=== PATIENT | female | born 2005 | race Two or more races ===

== ENCOUNTER 2025-05-28 14:50 | Outpatient (AMB) | payer MEDICAID, SELFPAY ==
[2025-05-28 15:21] VITALS: BP 125/80; PULSE 70; RESP 14; TEMP 36.3; O2SAT 99; BMI 30.2
--- NOTE | 2025-05-28 15:21 | OBCLNT_ITS ---
Vital Signs 05/28/25 15:21 Height 1.52 m Height Method Stated Weight 70.364 kg Weight Measurement Method Standing Scale BMI 30.2 BP 125/80 Blood Pressure Source Automatic Cuff Blood Pressure Location Left Upper Arm Position Sitting Respiration 14 Pulse 70 Pulse Source Monitor Temp 97.4 F Temp Source Oral Pulse Oximetry (%) 99 Oxygen Delivery Method Room Air Allergies/Home Meds Allergies & Medications Allergies No Known Allergies Allergy (Unknown, Uncoded 05/28/25 15:22) Medication Reconciliation NONE ##0 12/04/08 [History Confirmed 05/28/25] Intake Visit Data Collection New Patient or Established: New Patient (never been to [facility]) Reason for Visit:: INITIAL CARE Seen by Clinical Staff ONLY (RN/MA): No Crystallizer Operator Required: No Do You Feel Safe at Home: Yes Authorities Contacted: N/A PCP or OBGYN visit in last 3 months: No Hx Now: Yes Are you currently on any form of Control: No Last menstrual period: 10/13/24 Pain Present Currently: No Pain Scale Used: Courtney-Isaac/Numerical Pain scale:: 0 Smoking Status Smoking Status: Never smoker Questionnaires Covid-19 Vaccine Questionnaire Has patient been vacinated for Covid-19 Have you been vacinated for Covid-19: Yes PHQ-9 PHQ-2 Over the last 2 weeks, how often have you been bothered by any of the following problems? 1. Little interest or pleasure in doing things: not at all 2. Feeling down, depressed, or hopeless: not at all Total score: 0 PHQ-9 3. Trouble falling or staying asleep, or sleeping too much: Not at all 4. Feeling tired or having little energy: Not at all 5. Poor appetite or overeating: Not at all 6. Feeling bad about yourself - or that you are a failure or have let yourself or your family down: Not at all 7. Trouble concentrating on things, such as reading the newspaper or watching television: Not at all 8. Moving or speaking so slowly that other people could have noticed? - Or the opposite - being so fidgety or restless that you have been moving around a lot more than usual: not at all 9. Thoughts that you would be better off or of hurting yourself in some way: Not at all Total score: 0 Source: Developed by Drs. Enoc Warner, Acacia Zhao, Sp Terrell and colleagues, with an educational louann from [employer]. Depression screen completed yes Social History Living Situation History Lives With: Children Housing: House Tobacco History Smoking Status: Never smoker Second Hand Smoke Exposure: No Alcohol History Alcohol Intake: Never Domestic Abuse History Do You Feel Safe at Home: Yes History of Present Illness HPI Narrative 19-year-old 1 para 0 here for OBI. Patient is been followed at [facility] for care. Her first visit with Dr. Patel was at 8 weeks. Last. October 12, 2024. Estimated due date July 20, 2022 5. Patient had a 13-week ultrasound in December that confirmed dates. And she just had an ultrasound in April that also complained dates and growth. Denies social habits. Denies surgery. Denies chronic illness. Patient has a history of marijuana use early with . She is not smoking anymore. O+, antibody screen negative, RPR nonreactive, rubella immune, hepatitis B negative, hep C negative, HIV negative, GC and Chlamydia were negative. Her rubella was nonimmune. She AFP, NIPT and carrier screens were all negative. She had normal 1 hour. Her iron was 10.5 and 33. Normal platelets . A1C was 5.2 OB Initial Visit OB Flowsheet OB Flowsheet Initial Weight: Not Recorded Date -?-?-?-?-?-?-?-?-?-?-?-?- EGA Weight BP Alb Glu CTX Pres Fundal ht FHR Mov Dilation Station Effacement Hx Notes Visit Note 05/28/25 -?-?-?-?-?-?-?-?-?-?-?-?- 32w 4d 70.364 kg 125/80 absent unknown 31 145 active 19-year-old 1 para 0 with transfer care from [facility]. Records present. Patient has no OB complaints. Reports movement. Denies leaking, denies bleeding, denies contractions. Reviewed labs an d dates with patient. Continue vitamins. Increase fluids. Discussed kick count with patient. And I discussed ER precautions precautions parameters. Return 2 weeks OB Menstrual History Menstrual reliability: definite Flow: heavy Menstrual regularity: regular Monthly: Yes Age at menarche: 12 On control pills at conception: No Associated symptoms (LMP): Reports fatigue and breast tenderness OB History : 1 Infection History & Risk Evaluation History of STDs: none Genetic Screening & History Genetic Screening/Teratology Counseling - Includes patient, baby's father, or anyone in either family with: 1. Patient's age 35 years or older as of estimated date of delivery: No 2. Thalassemia (Guamanian, Sammarinese, Mediterranean, or Background); MCV less t [place] 80: No 3. Neural Tube Defect (Meningomyelocele, Spina Bifida, or Anencephaly): No 4. Congenital Heart Defect: No 5. Down Syndrome: No 6. Varun-Sachs (Ashkenazi Scientologist, Cajun, Tajik [place]): No 7. Olive Disease (Ashkenazi Scientologist): No 8. Familial Dysautonomia (Ashkenazi Scientologist): No 9. Sickle Cell Disease or Trait (): No 10. Hemophilia or other blood disorders: No 11. Muscular Dystrophy: No 12. Cystic Fibrosis: No 13. Wharton's Chorea: No 14. Mental Retardation/Autism: No 15. Other inherited genetic or chromosomal disorder: No 16. Maternal Metabolic Disorder (EG,TYPE 1 Diabetes, PKU): No 17. Patient or baby's father had a child with defects not listed above: No 18. Recurrent loss or a stillbirth: No 19. Medications (including supplements, vitamins, herbs or otc drugs)/illicit/recreational drugs/alcohol since last menstrual period: No 20. Any other: No Infection History 1. Live with someone with TB or exposed to TB: No 2. Rash or viral illness since last menstrual period: No 3. Hepatitis B,C: No Other (see comments) Source: [employer] [place] Review of Systems Review of Systems Systems Reviewed: All systems reviewed, normal except as documented Constitutional Constitutional: Reports fatigue Endocrine Endocrine: Reports fatigue Exam General Limitations: no limitations General Appearance: alert, in no apparent distress, comfortable, cooperative, healthy appearing, well developed and well groomed Neck Neck exam: Present normal inspection, full ROM and trachea midline Chest Chest inspection: Present normal inspection and symmetric chest wall rise Resp Respiratory exam: Present normal lung sounds bilaterally Card Cardiovascular exam: Present regular rate, normal rhythm and normal heart sounds Psych Psychiatric exam: Present normal affect and normal mood Office Procedures OB Clinic LOC & Office Proc's Nursing/Assessment Patient Status: Initial/New Patient OB Clinic Nursing Assessment: Medication Reconciliation, Update PMH in EMR and Vital Signs OB Clinic Coordination of Care: Complex Care and Chronic Disease 1-5, Consent,records obtained, informed consent, Education Simp Pt/Fam, 1 Ins Authorization, Lab and Imaging orders, Results/Orders obtained and Staff clarify orders Special Needs: Heart tones New Patient Charge New Patient Point Assignment: [id number] New Patient Point Charge: VAN HELPER Level 4 ([id number]) Assessment & Plan Diagnosis / Problem List (1) Encounter for supervision of high risk in third trimester, antepartum: Status: Acute Plan Discussed kick count twice a day. Increase fluids. I talked with patient about diet and weight gain I also encouraged patient to start walking at least 2 0 minutes twice a day. Reviewed reviewed labs and dates with patient and discussed labor precautions and danger signs symptoms. Return in 2 weeks OB check Additional Plan Follow Up: 2 Weeks (OBC)
== END 2025-05-28 15:38 | disposition home or self-care (01) ==
LOC: HODSOBC 14:50
PROVIDERS: Supervising Provider Advanced Practice Midwife; Visit Provider Advanced Practice Midwife
DX: O09.93 Supervision of high risk pregnancy, unspecified, third trimester (principal); Z3A.32 32 weeks gestation of pregnancy
CPT/HCPCS: 99204; G0463

== ENCOUNTER 2025-06-11 13:43 | Outpatient (AMB) | payer MEDICAID, SELFPAY ==
[2025-06-11 14:04] VITALS: BP 141/89; PULSE 77; RESP 16; TEMP 36.4; O2SAT 99; BMI 31.7
--- NOTE | 2025-06-11 14:04 | OBCLNT_ITS ---
Vital Signs 06/11/25 14:04 Height 1.52 m Height Method Stated Weight 73.255 kg Weight Measurement Method Standing Scale BMI 31.7 BP 141/89 H Blood Pressure Source Automatic Cuff Blood Pressure Location Left Upper Arm Position Sitting Respiration 16 Pulse 77 Pulse Source Monitor Temp 97.6 F Temp Source Oral Pulse Oximetry (%) 99 Oxygen Delivery Method Room Air Allergies/Home Meds Allergies & Medications Allergies No Known Allergies Allergy (Unknown, Uncoded 06/11/25 14:05) Medication Reconciliation NONE ##0 12/04/08 [History Confirmed 06/11/25] Intake Visit Data Collection New Patient or Established: Established Patient (seen at [facility] within 3 years) Reason for Visit:: CARE Seen by Clinical Staff ONLY (RN/MA): No Supervisor Record Press Required: No Do You Feel Safe at Home: Yes Authorities Contacted: N/A PCP or OBGYN visit in last 3 months: Yes Hx Now: Yes Are you currently on any form of Control: No Pain Present Currently: No Pain Scale Used: Courtney-Isaac/Numerical Pain scale:: 0 Smoking Status Smoking Status: Never smoker Questionnaires Covid-19 Vaccine Questionnaire Has patient been vacinated for Covid-19 Have you been vacinated for Covid-19: Yes PHQ-9 PHQ-2 Over the last 2 weeks, how often have you been bothered by any of the following problems? 1. Little interest or pleasure in doing things: not at all 2. Feeling down, depressed, or hopeless: not at all Total score: 0 PHQ-9 3. Trouble falling or staying asleep, or sleeping too much: Not at all 4. Feeling tired or having little energy: Not at all 5. Poor appetite or overeating: Not at all 6. Feeling bad about yourself - or that you are a failure or have let yourself or your family down: Not at all 7. Trouble concentrating on things, such as reading the newspaper or watching television: Not at all 8. Moving or speaking so slowly that other people could have noticed? - Or the opposite - being so fidgety or restless that you have been moving around a lot more than usual: not at all 9. Thoughts that you would be better off or of hurting yourself in some way: Not at all Total score: 0 Source: Developed by Drs. Enoc Warner, Acacia Zhao, Sp Terrell and colleagues, with an educational louann from [employer]. Depression screen completed yes Social History Living Situation History Lives With: Children Housing: House Tobacco History Smoking Status: Never smoker Second Hand Smoke Exposure: No Alcohol History Alcohol Intake: Never Domestic Abuse History Do You Feel Safe at Home: Yes Care OB Visit Log OB Flowsheet Initial Weight: Not Recorded Date -?-?-?-?-?-?-?-?-?-?-?-?- EGA Weight BP Alb Glu CTX Pres Fundal ht FHR Mov Dilation Station Effacement Hx Notes Visit Note 05/28/25 -?-?-?-?-?-?-?-?-?-?-?-?- 32w 4d 70.364 kg 125/80 absent unknown 31 145 active 19-year-old 1 para 0 with transfer care from [facility]. Records present. Patient has no OB complaints. Reports movement. Denies leaking, denies bleeding, denies contractions. Reviewed labs an d dates with patient. Continue vitamins. Increase fluids. Discussed kick count with patient. And I discussed ER precautions precautions parameters. Return 2 weeks OB 06/11/25 -?-?-?-?-?-?-?-?-?-?-?-?- 34w 4d 73.255 kg 141/89 absent cephalic 31 145 active Denies signs symptoms of PIH. Reports good movement. Denies leaking. Denies bleeding. Denies contractions. Reports the fetus is active Ordered PIH panel. Schedule ultrasound for growth. Sono at [facility]. Discussed labor precautions and kick count. And I discussed danger signs symptoms of PIH and ER precautions. Return a week OB check and GBS JOSE ALFREDO Calculator Estimated Delivery Date Method Current WG Current Estimate 07/19/25 LMP (Certain) 34w 4d Other Estimates 07/19/25 Ultrasound #1 34w 4d 07/27/25 Ultrasound #2 33w 3d Notes Visit Date: 05/28/25 Last Updated by: Daniella Duff CNM 19 yo . LMP 10/12/25. EDC: 07/20/25, OB PANEL: O+,abs-, rpr;;NR, rub NI, HBSAG-,HIV-,HC-, GC/CT-. 1hrgtt: 84, A1c: 5.2, NIPT/AFP/carrier neg Office Procedures OB Clinic LOC & Office Proc's Nursing/Assessment Patient Status: Established Patient OB Clinic Nursing Assessment: Medication Reconciliation, Update PMH in EMR and Vital Signs OB Clinic Coordination of Care: Complex Care and Chronic Disease 1-5, Consent,records obtained, informed consent, Education Simp Pt/Fam, 1 Ins Authorization, Lab and Imaging orders, Results/Orders obtained and Staff clarify orders Special Needs: Heart tones Established Patient Charge Established Patient Point Assignment: 150 Established Patient Point Charge: EP Level 4 (120-155) Assessment & Plan Diagnosis / Problem List (1) Encounter for supervision of high risk in third trimester, antepartum: Status: Acute (2) Size of fetus inconsistent with dates in third trimester: Status: Acute Plan Sono for growth. PIH panel. Discussed signs and symptoms of preeclampsia and danger signs symptoms. ER precautions discussed. Kick count twice a day. Return a week for GBS Additional Plan Follow Up: 1 Week (obc)
== END 2025-06-11 15:07 | disposition home or self-care (01) ==
LOC: HODSOBC 13:43
PROVIDERS: Supervising Provider Advanced Practice Midwife; Visit Provider Advanced Practice Midwife
DX: O09.893 Supervision of other high risk pregnancies, third trimester (principal); O26.843 Uterine size-date discrepancy, third trimester; Z3A.34 34 weeks gestation of pregnancy
CPT/HCPCS: 99214; G0463

== ENCOUNTER 2025-06-24 13:58 | Outpatient (AMB) | payer MEDICAID, SELFPAY ==
[2025-06-24 14:16] VITALS: BP 148/94; PULSE 80; RESP 16; TEMP 36.2; O2SAT 98; BMI 33.4
--- NOTE | 2025-06-24 14:16 | OBCLNT_ITS ---
Vital Signs 06/24/25 14:16 Height 1.52 m Height Method Stated Weight 77.281 kg Weight Measurement Method Standing Scale BMI 33.4 BP 148/94 H Blood Pressure Source Automatic Cuff Blood Pressure Location Left Upper Arm Position Sitting Respiration 16 Pulse 80 Pulse Source Monitor Temp 97.2 F Temp Source Oral Pulse Oximetry (%) 98 Oxygen Delivery Method Room Air Allergies/Home Meds Allergies & Medications Allergies No Known Allergies Allergy (Unknown, Uncoded 06/24/25 14:17) Medication Reconciliation NONE ##0 12/04/08 [History Confirmed 06/24/25] Intake Visit Data Collection New Patient or Established: Established Patient (seen at [facility] within 3 years) Reason for Visit:: OBC Seen by Clinical Staff ONLY (RN/MA): No Bridge Operator Required: No Do You Feel Safe at Home: Yes Authorities Contacted: N/A PCP or OBGYN visit in last 3 months: Yes Date of Last PCP or OBGYN visit: 06/11/25 Hx Now: Yes Are you currently on any form of Control: No Pain Present Currently: No Pain Scale Used: Courtney-Isaac/Numerical Pain scale:: 0 Smoking Status Smoking Status: Never smoker Questionnaires Covid-19 Vaccine Questionnaire Has patient been vacinated for Covid-19 Have you been vacinated for Covid-19: No PHQ-9 PHQ-2 Over the last 2 weeks, how often have you been bothered by any of the following problems? 1. Little interest or pleasure in doing things: not at all 2. Feeling down, depressed, or hopeless: not at all Total score: 0 PHQ-9 3. Trouble falling or staying asleep, or sleeping too much: Not at all 4. Feeling tired or having little energy: Not at all 5. Poor appetite or overeating: Not at all 6. Feeling bad about yourself - or that you are a failure or have let yourself or your family down: Not at all 7. Trouble concentrating on things, such as reading the newspaper or watching television: Not at all 8. Moving or speaking so slowly that other people could have noticed? - Or the opposite - being so fidgety or restless that you have been moving around a lot more than usual: not at all 9. Thoughts that you would be better off or of hurting yourself in some way: Not at all Total score: 0 If you checked off any problems, how difficult have these problems made it for you to do your work, take care of things at home, or get along with other pe ople?: not difficult at all Source: Developed by Drs. Enoc Warner, Acacia Zhao, Sp Terrell and colleagues, with an educational louann from [employer]. Depression screen completed yes Social History Living Situation History Lives With: Children Housing: House Tobacco History Smoking Status: Never smoker Second Hand Smoke Exposure: No Alcohol History Alcohol Intake: Never Domestic Abuse History Do You Feel Safe at Home: Yes Care OB Visit Log OB Flowsheet Initial Weight: Not Recorded Date -?-?-?-?-?-?-?-?-?-?-?-?- EGA Weight BP Alb Glu CTX Pres Fundal ht FHR Mov Dilation Station Effacement Hx Notes Visit Note 05/28/25 -?-?-?-?-?-?-?-?-?-?-?-?- 32w 4d 70.364 kg 125/80 absent unknown 31 145 active 19-year-old 1 para 0 with transfer care from [facility]. Records present. Patient has no OB complaints. Reports movement. Denies leaking, denies bleeding, denies contractions. Reviewed labs an d dates with patient. Continue vitamins. Increase fluids. Discussed kick count with patient. And I discussed ER precautions precautions parameters. Return 2 weeks OB 06/11/25 -?-?-?-?-?-?-?-?-?-?-?-?- 34w 4d 73.255 kg 141/89 absent cephalic 31 145 active Denies signs symptoms of PIH. Reports good movement. Denies leaking. Denies bleeding. Denies contractions. Reports the fetus is active Ordered PIH panel. Schedule ultrasound for growth. Sono at [facility]. Discussed labor precautions and kick count. And I discussed danger signs symptoms of PIH and ER precautions. Return a week OB check and GBS 06/24/25 -?-?-?-?--?-?-?-?-?-?-?-?- 36w 3d 77.281 kg 148/94 occasional cephalic 35 145 active Denies PIH signs and symptoms. Denies headache. Denies blurred vision. Denies epigastric pain. Reports good movement. Denies leaking or bleeding. Denies pressure. Occasional contractions. Patient was not called first ultrasound yet CMP reviewed. Discussed labor precautions. Kick count. GBS today. Repeat blood pressure 148/94. Patient was sent to labor and delivery for PIH eval and repeat labs. Return in a week OB check JOSE ALFREDO Calculator Estimated Delivery Date Method Current WG Current Estimate 07/19/25 LMP (Certain) 36w 3d Other Estimates 07/19/25 Ultrasound #1 36w 3d 07/27/25 Ultrasound #2 35w 2d Notes Visit Date: 05/28/25 Last Updated by: Daniella Duff, CNM 19 yo . LMP 10/12/25. EDC: 07/20/25, OB PANEL: O+,abs-, rpr;;NR, rub NI, HBSAG-,HIV-,HC-, GC/CT-. 1hrgtt: 84, A1c: 5.2, NIPT/AFP/carrier neg Office Procedures OB Clinic LOC & Office Proc's Nursing/Assessment Patient Status: Established Patient OB Clinic Nursing Assessment: Medication Reconciliation, Update PMH in EMR and Vital Signs OB Clinic Coordination of Care: Education Complex Pt/Fam, Consent,records obtained, informed consent, Ref for ancillary service and Staff clarify orders Special Needs: Heart tones Established Patient Charge Established Patient Point Assignment: 125 Established Patient Point Charge: EP Level 4 (120-155) Assessment & Plan Diagnosis / Problem List (1) Encounter for supervision of high risk in third trimester, antepartum: Status: Acute (2) Size of fetus inconsistent with dates in third trimester: Status: Acute Plan Discussed PIH signs and symptoms. Discussed ER precautions. Discussed kick count twice a day. Labor precautions. Patient was sent to labor and delivery for PIH workup and complete OB sono NST BPP. Return in a week for OB check Additional Plan Follow Up: 1 Week (obc)
== END 2025-06-24 14:37 | disposition home or self-care (01) ==
LOC: HODSOBC 13:58
PROVIDERS: Supervising Provider Advanced Practice Midwife; Visit Provider Advanced Practice Midwife
DX: O09.893 Supervision of other high risk pregnancies, third trimester (principal); O26.843 Uterine size-date discrepancy, third trimester; Z3A.36 36 weeks gestation of pregnancy
CPT/HCPCS: 99214; G0463

== ENCOUNTER 2025-06-24 14:57 | Outpatient (CLI) | payer MEDICAID, SELFPAY ==
[2025-06-24] VITALS (11 sets, daily range): BP systolic 118–159; BP diastolic 76–103; PULSE 54–84; RESP 18–99; TEMP 36.7; BMI 33.7
--- NOTE | 2025-06-24 15:04 | XR_ITS ---
Examination: Biophysical profile, ultrasound Date and time of exam: June 24, 2025 1531 hours INDICATIONS: Diagnosis preeclampsia, diagnosis -induced hypertension Technique: Multiple transabdominal sonographic images of the pelvis abdomen obtained. Attention is directed to the breathing movement, gross body movement, amniotic fluid volume and tone. Findings: Amniotic fluid index 11.2 cm Total biophysical profile is 8 of 8. breathing movement is 2. Gross body movement is 2. tone is 2. Qualitative amniotic fluid volume is 2 Impression: Biophysical profile is 8 of 8.
--- NOTE | 2025-06-24 15:04 | XR_ITS ---
Examination: Complete OB ultrasound greater than 14 weeks Date and time of exam: June 24, 2025 1535 hours INDICATIONS: Diagnosis -induced hypertension, diagnosis preeclampsia of Findings: Viable intrauterine single fetus with single amniotic sac presentation cephalic Cardiac motion 144 BPM Placenta posterior fundal grade 2 Umbilical cord insertion 3 vessel seen Amniotic fluid index 12 cm spine maternal right Cervix 3.3 cm Ovaries obscured by bowel gas. Composite estimated gestational age based on BPD, head circumference, abdominal circumference, femur length is 35 weeks 2 days, estimated weight 2519.9 g. Survey of intracranial anatomy, spinal anatomy, abdominal anatomy, four-chamber heart performed with no abnormalities identified. Impression: Viable intrauterine gestation cephalic presentation.
[2025-06-24 16:09] LABS: Basophils # (Auto) 0.1 Thou/mm3 (0.0-0.2); Basophils % (Auto) 1 % (0-2.5); Eosinophils # (Auto) 0.2 Thou/mm3 (0.0-0.5); Eosinophils % (Auto) 3 % (0-10); Hematocrit 34.8 % (36.0-46.0); Hemoglobin 11.6 g/dL (12.0-16.0); Immature Granulocytes Auto 0.15 Thou/mm3 (0.00-0.00); Lymphocytes # (Auto) 2.2 Thou/mm3 (1.0-5.0); Lymphocytes % (Auto) 24 % (10-50); Mean Corpuscular HGB Conc 33.3 g/dl (31.0-37.0); Mean Corpuscular Hemoglobin 29.7 pg (25.0-35.0); Mean Corpuscular Volume 89 fL (80-100); Monocytes # (Auto) 0.7 Thou/mm3 (0.0-0.8); Monocytes % (Auto) 7 % (0-12); Neutrophils # (Auto) 6.1 Thou/mm3 (1.8-7.7); Neutrophils % (Auto) 65 % (37-80); Nucleated Red Blood Cell # 0.00 Thou/mm3 (0.00-0.00); Nucleated Red Blood Cell % 0 /100 WBC (0); Platelet Count 145 Thou/mm3 (140-440); RDW Standard Deviation 48.1 fL (36.4-46.3); Red Blood Count 3.91 Miln/mm3 (4.00-5.20); White Blood Count 9.4 Thou/mm3 (4.5-11.0)
[2025-06-24 16:22] LABS: Fibrinogen 440 mg/dL (175-375); INR 0.9 (0.9-1.3); Partial Thromboplastin Time 27.3 Seconds (22.0-36.0); Prothrombin Time 10.3 Seconds (9.0-12.2)
[2025-06-24 16:24] LABS: Alanine Aminotransferase < 7 U/L (10-49); Albumin, Serum 3.4 gm/dL (3.5-5.0); Albumin/Globulin Ratio 1.5 (1.2-2.2); Alkaline Phosphatase 141 U/L (46-116); Anion Gap 9 (7-16); Aspartate Amino Transferase 17 U/L (0-34); BUN/Creatinine Ratio 14 Ratio (12-20); Bilirubin,Total 0.3 mg/dL (0.3-1.2); Blood Urea Nitrogen 7 mg/dL (9-23); Calcium 9.3 mg/dL (8.3-10.6); Calcium (Corrected) 9.8 mg/dL (8.5-10.1); Carbon Dioxide 21.9 mMol/L (20.0-31.0); Chloride 111 mMol/L (98-107); Creatinine (Component) 0.5 mg/dL (0.6-1.3); Estimated Creatinine Clearance 167.7 mL/min (>60); Globulin 2.2 gm/dL (2.3-3.5); Glucose 72 mg/dL (74-106); Osmolality,Calculated 280 (275-295); Potassium 4.1 mMol/L (3.4-5.1); Sodium 142 mMol/L (136-145); Total Protein 5.6 gm/dL (5.7-8.2); Uric Acid 5.2 mg/dL (3.1-7.8); eGFR > 60 See Note
[2025-06-24 16:35] LABS: LDH (Lactate Dehydrogenase) 167 U/L (120-246)
[2025-06-24 17:08] LABS: Collection Type, Urine Clean Catch
[2025-06-24 17:22] LABS: Creatinine,Random Urine 60 mg/dL (30-125); Protein Total, Random Urine 18 mg/dL (1-14)
[2025-06-24 17:51] LABS: Bilirubin,Urine Negative (Negative); Blood,Urine Negative (Negative); Clarity,Urine Clear (Clear/Hazy); Color,Urine Lt-Yellow (Lt Yel-Yel); Glucose, Urine Negative (Negative); Ketones,Urine Negative (Negative); Leukocyte Esterase,Urine Positive (Negative); Nitrite,Urine Negative (Negative); PH,Urine 6.5 (5.0-7.0); Protein,Urine Negative (Neg - Trace); RBC,Urine 3 /hpf (0-3); Specific Gravity,Urine 1.013 (1.001-1.035); Squamous Epithelial Cell,Urine 6 /hpf (0-5); Urobilinogen,Urine Negative mg/dL (0.0-1.0); WBC,Urine 4 /hpf (0-5)
--- NOTE | 2025-06-24 18:09 | ESPR_ITS ---
Documentation for date of: 06/24/25 OB Labor Progress Note Contractions Monitor mode: External Contraction frequency: 0 Status status: Category l Assessment and Plan Comments: Izabel is a 19yo with SIUP at 36&3wk presenting to L&D from clinic for PIH workup. She had mild range bp noted in clinic and this was second occasion in . On 06/11 she had one documented mild range bp in clinic after which PIH labs were done which were normal. She notes no painful/regular ctx, no vaginal bleeding, no lof. Normal mov ement. She denies headache, vision changes and RUQ pain. This has been complicated by anemia, THC use in 1st trimester and RNI. She has regular OB care with TA Duff after transferring from [facility] ROS negative other than what was described above. Vitals wnl, afebrile General: well developed, well nourished, no acute distress, conversant Cardiac: normal heart rate Lungs: breathing without distress Abdomen: soft, gravid, non-tender, no rebound or guarding Extremities: no pain with palpation of calves NST: Reactive, +accels, no decels, mod olvin [place]: no regular ctx pattern Labs: Hgb 11.6 Plt 145 serum creat 0.5 AST/ALT wnl urine prot:creat 0.3 Assessment: Izabel is a 19yo with SIUP at 36&3wk with suspected pre-eclampsia withOUT severe features based on mild range bp's today and one prior documented mild range bp on 06/11 as well as urine p:c 0.3. NO severe range bp's. Other PIH labs all normal. Benign exam. Reassuring status. Plan: -Return for NST, bp check and PIH labs on 06/28 -Follow up in clinic with TA Duff on 06/28 or 06/29 to discuss scheduling IOL -Discussed return precautions at length, especially for persistent headache, vision changes and RUQ pain Rafaela Castle MD
== END 2025-06-24 18:10 | disposition home or self-care (01) ==
LOC: S4S1 14:58 → S4SX 14:58
PROVIDERS: Referring Provider Advanced Practice Midwife; Visit Provider Obstetrics & Gynecology
DX: Z34.03 Encounter for supervision of normal first pregnancy, third trimester (principal); Z36.89 Encounter for other specified antenatal screening; Z3A.36 36 weeks gestation of pregnancy
CPT/HCPCS: 36415; 59025; 76805; 76819; 80053; 81001; 82570; 83615; 84156; 84550; 85025; 85384; 85610; 85730

== ENCOUNTER 2025-06-29 13:18 | Outpatient (AMB) | payer MEDICAID, SELFPAY ==
[2025-06-29 13:34] VITALS: BP 146/94; PULSE 87; RESP 16; TEMP 36.2; O2SAT 98
--- NOTE | 2025-06-29 13:34 | AMB.OBVISIT ---
Vital Signs 06/29/25 13:34 Weight 77.337 kg Weight Measurement Method Standing Scale BP 146/94 H Blood Pressure Source Automatic Cuff Blood Pressure Location Left Upper Arm Position Standing Respiration 16 Pulse 87 Pulse Source Monitor Temp 97.2 F Temp Source Oral Pulse Oximetry (%) 98 Oxygen Delivery Method Room Air Allergies/Home Meds Allergies & Medications Allergies No Known Allergies Allergy (Unknown, Uncoded 06/29/25 13:35) Medication Reconciliation NONE ##0 12/04/08 [History Confirmed 06/29/25] Intake Visit Data Collection New Patient or Established: Established Patient (seen at [facility] within 3 years) 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 1. Little interest or pleasure in doing things: not at all 2. Feeling down, depressed, or hopeless: not at all Total score: 0 PHQ-9 3. Trouble falling or staying asleep, or sleeping too much: Not at all 4. Feeling tired or having little energy: Not at all 5. Poor appetite or overeating: Not at all 6. Feeling bad about yourself - or that you are a failure or have let yourself or your family down: Not at all 7. Trouble concentrating on things, such as reading the newspaper or watching television: Not at all 8. Moving or speaking so slowly that other people could have noticed? - Or the opposite - being so fidgety or restless that you have been moving around a lot more than usual: not at all 9. Thoughts that you would be better off or of hurting yourself in some way: Not at all Total score: 0 If you checked off any problems, how difficult have these problems made it for you to do your work, take care of things at home, or get along with other people?: not difficult at all Source: Developed by Drs. Enoc Warner, Acacia Zhao, Sp Terrell and colleagues, with an educational louann from [employer]. Depression screen completed yes Social History Living Situation History Lives With: Children Housing: House Tobacco History Smoking Status: Never smoker Second Hand Smoke Exposure: No Alcohol History Alcohol Intake: Never Domestic Abuse History Do You Feel Safe at Home: Yes Care OB Visit Log OB Flowsheet Initial Weight: Not Recorded Date <del>?</del> EGA Weight BP Alb Glu CTX Pres Fundal ht FHR Mov Dilation Station Effacement Hx Notes Visit Note 05/28/25 <del>?</del> 32w 4d 70.364 kg 125/80 absent unknown 31 145 active 19-year-old 1 para 0 with transfer care from [facility]. Records present. Patient has no OB complaints. Reports movement. Denies leaking, denies bleeding, denies contractions. Reviewed labs and dates with patient. Continue vitamins. Increase fluids. Discussed kick count with patient. And I discussed ER precautions precautions parameters. Return 2 weeks OB 06/11/25 <del>?</del> 34w 4d 73.255 kg 141/89 absent cephalic 31 145 active Denies signs symptoms of PIH. Reports good movement. Denies leaking. Denies bleeding. Denies contractions. Reports the fetus is active Ordered PIH panel. Schedule ultrasound for growth. Sono at OB. Discussed labor precautions and kick count. And I discussed danger signs symptoms of PIH and ER precautions. Return a week OB check and GBS 06/24/25 <del>?</del> 36w 3d 77.281 kg 148/94 occasional cephalic 35 145 active Denies PIH signs and symptoms. Denies headache. Denies blurred vision. Denies epigastric pain. Reports good movement. Denies leaking or bleeding. Denies pressure. Occasional contractions. Patient was not called first ultrasound yet CMP reviewed. Discussed labor precautions. Kick count. GBS today. Repeat blood pressure 148/94. Patient was sent to labor and delivery for PIH eval and repeat labs. Return in a week OB check 06/29/25 <del>?</del> 37w 1d 77.337 kg 146/94 occasional cephalic 37 140 active OB check today. Denies PIH signs and symptoms. No headache. Patient reports that she does get little anxious when she comes for visits or any other appointments that she has. Reports good movement. Denies leaking, bleeding, contractions. Patient was seen in labor and delivery Saturday for PIH eval OB check today. Denies PIH signs and symptoms. No headache. Patient reports that she does get little anxious when she comes for visits or any other appointments that she has. Reports good movement. Denies leaking, bleeding, contractions. Patient was seen in labor and delivery Saturday for PIH eval. 1st BP: 157/101 OB check today. Denies PIH signs and symptoms. No headache. Patient reports that she does get little anxious when she comes for visits or any other appointments that she has. Reports good movement. Denies leaking, bleeding, contractions. Patient was seen in labor and delivery Saturday for PIH eval. 1st BP: 157/101. Patient No Show to [facility] triage for PIH eval. called patient x 2 to urge patient to follow advice and go to [facility] as directed. left message OB check today. Denies PIH signs and symptoms. No headache. Patient reports that she does get little anxious when she comes for visits or any other appointments that she has. Reports good movement. Denies leaking, bleeding, contractions. Patient was seen in labor and delivery Saturday for PIH eval. 1st BP: 157/101. Patient No Show to [facility] triage for PIH eval. called patient x 2 to urge patient to follow advice and go to [facility] as directed. left message. Urine dip: neg protien Reviewed PIH signs and symptoms. Kick count twice a day. Increase fluids. Continue prenatals. Return in a week. Patient's to labor and delivery for PIH eval JOSE ALFREDO Calculator Estimated Delivery Date Method Current WG Current Estimate 07/19/25 LMP (Certain) 37w 1d Other Estimates 07/19/25 Ultrasound #1 37w 1d 07/27/25 Ultrasound #2 36w 0d Notes Visit Date: 05/28/25 Last Updated by: Daniellasilke Duff, CNM 19 yo . LMP 10/12/25. EDC: 07/20/25, OB PANEL: O+,abs-, rpr;;NR, rub NI, HBSAG-,HIV-,HC-, GC/CT-. 1hrgtt: 84, A1c: 5.2, NIPT/AFP/carrier neg Office Procedures OB Clinic LOC & Office Proc's Nursing/Assessment Patient Status: Established Patient OB Clinic Nursing Assessment: Medication Reconciliation, Update PMH in EMR and Vital Signs OB Clinic Coordination of Care: Education Complex Pt/Fam, Consent,records obtained, informed consent, Lab and Imaging orders, Results/Orders obtained and Staff clarify orders Special Needs: Heart tones Miscellaneous Interventions: Blood/Urine Collection Established Patient Charge Established Patient Point Assignment: 145 Established Patient Point Charge: EP Level 4 (120-155) Assessment & Plan Diagnosis / Problem List (1) Size of fetus inconsistent with dates in third trimester: Status: Acute (2) Encounter for supervision of high risk in third trimester, antepartum: Status: Acute Plan Patient was sent to labor and delivery for PIH workup. I also discussed labor precautions and kick count with patient. Discussed signs and symptoms of PIH and what to watch for. Discussed ER precautions. Patient no-showed to labor and delivery. I called patient x 2 and left message urging patient to go to labor and delivery for her PIH eval patient was not at home keep OB appointment meant as scheduled for week Additional Plan Follow Up: 1 Week (obc)
== END 2025-06-29 13:56 | disposition home or self-care (01) ==
LOC: HODSOBC 13:18
PROVIDERS: Supervising Provider Advanced Practice Midwife; Visit Provider Advanced Practice Midwife
DX: O09.893 Supervision of other high risk pregnancies, third trimester (principal); O26.843 Uterine size-date discrepancy, third trimester; Z3A.37 37 weeks gestation of pregnancy
CPT/HCPCS: 99214; G0463

== ENCOUNTER 2025-06-30 22:53 | Emergency (ER) | payer MEDICAID, SELFPAY ==
[2025-06-30 22:54] VITALS: BMI 33.2
[2025-06-30 23:14] VITALS: BP 159/107; PULSE 84; RESP 18; TEMP 36.8; O2SAT 99
--- NOTE | 2025-06-30 23:49 | EDNOTE_ITS ---
ED SOB =RME/HPI General Chief Complaint: Shortness of Breath/Dyspnea Stated Complaint: SOB, BP 157/111 Time Seen by Provider: 06/30/25 23:24 Arrival date/time: 06/30/25 22:53 19-year-old female 37 weeks gestation reports with complaints of shortness of breath with movement and elevated blood pressure readings. Patient states she was evaluated by OBGYN who feels the elevated blood pressures are related to anxiety and no treatment is needed at this time. Patient states that while sitting in the ER the shortness of breath has completely resolved and now she is concern for her elevated blood pressure reading. She denies chest pain nausea vomiting fever chills cough congestion dizziness or abdominal pain. Limitations: no limitations Related Data Home Medications ?Medication ?Instructions ?Recorded ?Confirmed NONE ##0 12/04/08 06/29/25 Allergies Allergy/AdvReac Type Severity Reaction Status Date / Time No Known Allergies Allergy Unknown Uncoded 06/29/25 13:35 Review of Systems Constitutional Constitutional: Denies chills, Denies fever(s) and Denies headache(s) ENT Ears, Nose, Mouth, and Throat: Denies headache(s), Denies neck pain, Denies sore throat, Denies throat swelling and Denies vertigo Cardiovascular Cardiovascular: Denies chest pain, Reports dyspnea and Denies syncope Respiratory Respiratory: Denies cough and Reports dyspnea Musculoskeletal Musculoskeletal: Denies myalgias and Denies neck pain Neurologic Neurologic: Denies headache(s), Denies syncope and Denies vertigo Psychiatric Psychiatric: Denies anxiety and Denies depression Hematologic/Lymphatic Hematologic/Lymphatic: Denies easy bleeding and Denies easy bruising Allergic/Immunologic Allergic/Immunologic: Denies throat swelling Past Medical History Surgical History SURGICAL: Negative Section Social History SMOKING STATUS: Never smoker SECOND HAND EXPOSURE: No ED Exam General Limitations: Present no limitations General appearance: Present alert and in no apparent distress Head Head exam: Present atraumatic Eye Eye exam: Present normal appearance, PERRL and EOMI ENT ENT exam: Present normal exam, normal oropharynx and mucous membranes moist Neck Neck exam: Present normal inspection, full ROM and trachea midline Chest Chest inspection: Present normal inspection and symmetric chest wall rise Respiratory Respiratory exam: Present normal lung sounds bilaterally Cardiovascular Cardiovascular exam: Present regular rate, normal rhythm and normal heart sounds Abdominal Exam Abdominal exam: Present other (GRAVID) Extremities Exam Extremities exam: Present normal inspection and full ROM Back Exam Back exam: Present normal inspection and full ROM Neurological Exam Neurological exam: Present alert, oriented X3 and CN II-XII intact Psychiatric Psychiatric exam: Present normal affect and normal mood Skin Skin exam: Present warm, dry, intact and normal color Course Quality Measures none Vital Signs Vital signs: Vital Signs Temperature 98.3 F 06/30/25 23:14 Pulse Rate 84 06/30/25 23:14 Respiratory Rate 18 06/30/25 23:14 Blood Pressure 159/107 H 06/30/25 23:14 Pulse Oximetry (%) 99 06/30/25 23:14 Oxygen Delivery Method Room Air 06/30/25 23:14 Shortness of Breath / Dyspnea Patient data External records reviewed:: None Clinical information provided by:: patient Social determinants that could affect healthcare access:: none Patient has the following chronic illnesses:: none How is presenting disease/condition affected by chronic disease/condition?: no chronic disease Evaluation data The following diagnostics were reviewed and interpreted by me:: other (specify) (none) Lab and/or radiology exams considered but not ordered:: chest xray but did not order as pt reports complete resolution of symptoms Interpretation Summary: n/a Medications / Prescriptions Medications or Prescriptions considered but not ordered:: none Medication administrations:: none Consultations Consultation(s) initiated? (list below): No Diagnosis Shortness of Breath Differential Diagnosis: asthma with exacerbation and other (anxiety, ) Most likely diagnosis given after review of the tests above:: symptoms of Admission Indicated Admission indicated?: not indicated Admission Request Was there a request for admission?: No Disposition Plan Disposition Plan: Discharge Discharge Attestation Discharge Attestation: The patient and all family members were given an opportunity to ask questions and understood the discharge instructions. Discharge instructions specifically effects, indications for sooner follow up or return to the emergency department, and the expected course of current diagnosis. Patient condition: Stable Discharge Plan Plan Patient Disposition: HOME (Self Care) Prescriptions/Referrals Prescriptions/Med Rec: No Action NONE Qty: 0 Referrals: Temporary Provider,ED [Primary Care Provider, Emergency Medicine] - In 1 week Problem List Clinical Impression: Elevated blood pressure reading, -related symptom Patient/Caregiver Discharge Instructions Additional Instructions: Follow-up with your PHOTO CARTOGRAPHER in the morning if symptoms return or worsen return to the emergency department immediately Print Language: English Stand Alone Forms: [facility] Patient Portal Info Letter
[2025-06-30 23:54] VITALS: BP 149/102
== END 2025-07-01 00:17 | disposition home or self-care (01) ==
LOC: SERX 07-01 02:06
PROVIDERS: Emergency Provider Emergency Medicine; PCP Family Medicine
DX: O26.893 Other specified pregnancy related conditions, third trimester (principal); R03.0 Elevated blood-pressure reading, without diagnosis of hypertension; Z3A.37 37 weeks gestation of pregnancy
CPT/HCPCS: 99281

== ENCOUNTER 2025-07-07 14:06 | Outpatient (AMB) | payer MEDICAID, SELFPAY ==
[2025-07-07 14:17] VITALS: BP 156/105; PULSE 98; RESP 16; TEMP 36.2; O2SAT 98; BMI 34.4
--- NOTE | 2025-07-07 14:17 | AMB.OBVISIT ---
Vital Signs 07/07/25 14:17 Height 1.52 m Height Method Stated Weight 79.549 kg Weight Measurement Method Standing Scale BMI 34.4 BP 156/105 H Blood Pressure Source Automatic Cuff Blood Pressure Location Left Upper Arm Position Sitting Respiration 16 Pulse 98 Pulse Source Monitor Temp 97.2 F Temp Source Oral Pulse Oximetry (%) 98 Oxygen Delivery Method Room Air Allergies/Home Meds Allergies & Medications Allergies No Known Allergies Allergy (Unknown, Uncoded 07/07/25 14:19) Medication Reconciliation NONE ##0 12/04/08 [History Confirmed 07/07/25] Intake Visit Data Collection New Patient or Established: Established Patient (seen at [facility] within 3 years) Reason for Visit:: OBC Seen by Clinical Staff ONLY (RN/MA): No Naval Inspector Required: No Do You Feel Safe at Home: Yes Authorities Contacted: N/A PCP or OBGYN visit in last 3 months: Yes Date of Last PCP or OBGYN visit: 06/30/25 Hx Now: Yes Are you currently on any form of Control: No Pain Present Currently: No Pain Scale Used: Courtney-Isaac/Numerical Pain scale:: 0 Smoking Status Smoking Status: Never smoker Questionnaires Covid-19 Vaccine Questionnaire Has patient been vacinated for Covid-19 Have you been vacinated for Covid-19: Yes PHQ-9 PHQ-2 Over the last 2 weeks, how often have you been bothered by any of the following problems? 1. Little interest or pleasure in doing things: not at all 2. Feeling down, depressed, or hopeless: not at all Total score: 0 PHQ-9 3. Trouble falling or staying asleep, or sleeping too much: Not at all 4. Feeling tired or having little energy: Not at all 5. Poor appetite or overeating: Not at all 6. Feeling bad about yourself - or that you are a failure or have let yourself or your family down: Not at all 7. Trouble concentrating on things, such as reading the newspaper or watching television: Not at all 8. Moving or speaking so slowly that other people could have noticed? - Or the opposite - being so fidgety or restless that you have been moving around a lot more than usual: not at all 9. Thoughts that you would be better off or of hurting yourself in some way: Not at all Total score: 0 If you checked off any problems, how difficult have these problems made it for you to do your work, take care of things at home, or get along with other people?: not difficult at all Source: Developed by Drs. Enoc Warner, Acacia Zhao, Sp Terrell and colleagues, with an educational louann from [employer]. Depression screen completed yes Social History Living Situation History Lives With: Children Housing: House Tobacco History Smoking Status: Never smoker Second Hand Smoke Exposure: No Alcohol History Alcohol Intake: Never Domestic Abuse History Do You Feel Safe at Home: Yes Care OB Visit Log OB Flowsheet Initial Weight: Not Recorded Date <del>?</del> EGA Weight BP Alb Glu CTX Pres Fundal ht FHR Mov Dilation Station Effacement Hx Notes Visit Note 05/28/25 <del>?</del> 32w 4d 70.364 kg 125/80 absent unknown 31 145 active 19-year-old 1 para 0 with transfer care from [facility]. Records present. Patient has no OB complaints. Reports movement. Denies leaking, denies bleeding, denies contractions. Reviewed labs and dates with patient. Continue vitamins. Increase fluids. Discussed kick count with patient. And I discussed ER precautions precautions parameters. Return 2 weeks OB 06/11/25 <del>?</del> 34w 4d 73.255 kg 141/89 absent cephalic 31 145 active Denies signs symptoms of PIH. Reports good movement. Denies leaking. Denies bleeding. Denies contractions. Reports the fetus is active Ordered PIH panel. Schedule ultrasound for growth. Sono at [facility]. Discussed labor precautions and kick count. And I discussed danger signs symptoms of PIH and ER precautions. Return a week OB check and GBS 06/24/25 <del>?</del> 36w 3d 77.281 kg 148/94 occasional cephalic 35 145 active Denies PIH signs and symptoms. Denies headache. Denies blurred vision. Denies epigastric pain. Reports good movement. Denies leaking or bleeding. Denies pressure. Occasional contractions. Patient was not called first ultrasound yet CMP reviewed. Discussed labor precautions. Kick count. GBS today. Repeat blood pressure 148/94. Patient was sent to labor and delivery for PIH eval and repeat labs. Return in a week OB check 06/29/25 <del>?</del> 37w 1d 77.337 kg 146/94 occasional cephalic 37 140 active OB check today. Denies PIH signs and symptoms. No headache. Patient reports that she does get little anxious when she comes for visits or any other appointments that she has. Reports good movement. Denies leaking, bleeding, contractions. Patient was seen in labor and delivery Saturday for PIH eval OB check today. Denies PIH signs and symptoms. No headache. Patient reports that she does get little anxious when she comes for visits or any other appointments that she has. Reports good movement. Denies leaking, bleeding, contractions. Patient was seen in labor and delivery Saturday for PIH eval. 1st BP: 157/101 OB check today. Denies PIH signs and symptoms. No headache. Patient reports that she does get little anxious when she comes for visits or any other appointments that she has. Reports good movement. Denies leaking, bleeding, contractions. Patient was seen in labor and delivery Saturday for PIH eval. 1st BP: 157/101. Patient No Show to [facility] triage for PIH eval. called patient x 2 to urge patient to follow advice and go to [facility] as directed. left message OB check today. Denies PIH signs and symptoms. No headache. Patient reports that she does get little anxious when she comes for visits or any other appointments that she has. Reports good movement. Denies leaking, bleeding, contractions. Patient was seen in labor and delivery Saturday for PIH eval. 1st BP: 157/101. Patient No Show to [facility] triage for PIH eval. called patient x 2 to urge patient to follow advice and go to [facility] as directed. left message. Urine dip: neg protien Reviewed PIH signs and symptoms. Kick count twice a day. Increase fluids. Continue prenatals. Return in a week. Patient's to labor and delivery for PIH eval 07/07/25 <del>?</del> 38w 2d 79.549 kg 156/105 occasional cephalic 38 142 active 1st BP: 159/95, denies PIH s/s, no headache, reports good movemeny, no leaking or bleeding Patient sent to labor and delivery for PIH eval and possible induction. Gave report to Dr. Sanchez. I discussed PIH signs and symptoms. Discussed labor precautions and kick count twice a day. Discussed danger signs symptoms and ER precautions. Schedule for 1 week OB check in case not delivered JOSE ALFREDO Calculator Estimated Delivery Date Method Current WG Current Estimate 07/19/25 LMP (Certain) 38w 2d Other Estimates 07/19/25 Ultrasound #1 38w 2d 07/27/25 Ultrasound #2 37w 1d Notes Visit Date: 05/28/25 Last Updated by: Daniella Duff, TA 19 yo . LMP 10/12/25. EDC: 07/20/25, OB PANEL: O+,abs-, rpr;;NR, rub NI, HBSAG-,HIV-,HC-, GC/CT-. 1hrgtt: 84, A1c: 5.2, NIPT/AFP/carrier neg Office Procedures OB Clinic LOC & Office Proc's Nursing/Assessment Patient Status: Established Patient OB Clinic Nursing Assessment: Medication Reconciliation, Update PMH in EMR and Vital Signs OB Clinic Coordination of Care: Education Complex Pt/Fam, Consent,records obtained, informed consent, Lab and Imaging orders, Results/Orders obtained and Staff clarify orders Special Needs: Heart tones Established Patient Charge Established Patient Point Assignment: 115 Established Patient Point Charge: EP Level 3 (80-115) Assessment & Plan Diagnosis / Problem List (1) Size of fetus inconsistent with dates in third trimester: Status: Acute Plan Patient sent to labor and delivery for PIH workup and possible induction. Discussed labor precautions. Kick count twice a day. Increase fluids. Continue prenatals. Discussed danger signs symptoms and ER precautions. Return in a week for OB check if undelivered Additional Plan Follow Up: 1 Week (obc)
== END 2025-07-07 14:35 | disposition home or self-care (01) ==
LOC: HODSOBC 14:06
PROVIDERS: Supervising Provider Advanced Practice Midwife; Visit Provider Advanced Practice Midwife
DX: O09.893 Supervision of other high risk pregnancies, third trimester (principal); Z3A.38 38 weeks gestation of pregnancy; O26.843 Uterine size-date discrepancy, third trimester
CPT/HCPCS: 99213; G0463

== ENCOUNTER 2025-07-07 17:35 | Inpatient (IN) | payer MEDICAID, SELFPAY ==
[2025-07-07] VITALS (32 sets, daily range): BP systolic 112–144; BP diastolic 67–105; PULSE 62–108; RESP 16–100; TEMP 36.7; O2SAT 95–100; BMI 34.4; BMI 34.3
--- NOTE | 2025-07-07 15:00 | XR_ITS ---
Examination: Complete OB ultrasound greater than 14 weeks Date and time of exam: July 07, 2025 1532 hours INDICATIONS: -induced hypertension today Findings: Viable intrauterine single fetus with single amniotic sac presentation cephalic Cardiac motion 130 BPM. Placenta posterior grade 3. Umbilical cord insertion 3 vessel seen. Amniotic fluid index 14.2 cm spine maternal right Cervix 3.7 cm Ovaries obscured by the fetus. Composite estimated gestational age based on BPD, head circumference, abdominal circumference, femur length is 35 weeks 5 days Estimated weight 2816 g. Survey of intracranial anatomy, spinal anatomy, abdominal anatomy, four-chamber heart performed with no abnormalities identified. Impression: Viable intrauterine gestation cephalic presentation.
[2025-07-07 15:31] LABS: Collection Type, Urine Clean Catch
[2025-07-07 15:35] LABS: Basophils # (Auto) 0.0 Thou/mm3 (0.0-0.2); Basophils % (Auto) 0 % (0-2.5); Eosinophils # (Auto) 0.1 Thou/mm3 (0.0-0.5); Eosinophils % (Auto) 1 % (0-10); Hematocrit 34.3 % (36.0-46.0); Hemoglobin 11.8 g/dL (12.0-16.0); Immature Granulocytes Auto 0.09 Thou/mm3 (0.00-0.00); Lymphocytes # (Auto) 2.3 Thou/mm3 (1.0-5.0); Lymphocytes % (Auto) 25 % (10-50); Mean Corpuscular HGB Conc 34.4 g/dl (31.0-37.0); Mean Corpuscular Hemoglobin 30.6 pg (25.0-35.0); Mean Corpuscular Volume 89 fL (80-100); Monocytes # (Auto) 0.6 Thou/mm3 (0.0-0.8); Monocytes % (Auto) 6 % (0-12); Neutrophils # (Auto) 6.1 Thou/mm3 (1.8-7.7); Neutrophils % (Auto) 66 % (37-80); Nucleated Red Blood Cell # 0.00 Thou/mm3 (0.00-0.00); Nucleated Red Blood Cell % 0 /100 WBC (0); Platelet Count 147 Thou/mm3 (140-440); RDW Standard Deviation 47.3 fL (36.4-46.3); Red Blood Count 3.85 Miln/mm3 (4.00-5.20); White Blood Count 9.2 Thou/mm3 (4.5-11.0)
[2025-07-07 15:41] LABS: Bilirubin,Urine Negative (Negative); Blood,Urine Negative (Negative); Color,Urine Lt-Yellow (Lt Yel-Yel); Glucose, Urine Negative (Negative); Ketones,Urine Negative (Negative); Leukocyte Esterase,Urine Positive (Negative); Nitrite,Urine Negative (Negative); PH,Urine 6.5 (5.0-7.0); Protein,Urine Trace (Neg - Trace); RBC,Urine 4 /hpf (0-3); Specific Gravity,Urine 1.011 (1.001-1.035); Squamous Epithelial Cell,Urine 29 /hpf (0-5); Urobilinogen,Urine Negative mg/dL (0.0-1.0); WBC,Urine 9 /hpf (0-5)
[2025-07-07 15:49] LABS: Creatinine,Random Urine 63 mg/dL (30-125); Protein Total, Random Urine 30 mg/dL (1-14)
[2025-07-07 15:56] LABS: Fibrinogen 441 mg/dL (175-375); INR 0.9 (0.9-1.3); Partial Thromboplastin Time 26.8 Seconds (22.0-36.0); Prothrombin Time 10.3 Seconds (9.0-12.2)
[2025-07-07 16:05] LABS: Clarity,Urine Hazy (Clear/Hazy)
[2025-07-07 16:15] LABS: Alanine Aminotransferase < 7 U/L (10-49); Albumin, Serum 3.4 gm/dL (3.5-5.0); Albumin/Globulin Ratio 1.7 (1.2-2.2); Alkaline Phosphatase 161 U/L (46-116); Anion Gap 11 (7-16); Aspartate Amino Transferase 15 U/L (0-34); BUN/Creatinine Ratio 12 Ratio (12-20); Bilirubin,Total 0.3 mg/dL (0.3-1.2); Blood Urea Nitrogen 7 mg/dL (9-23); Calcium 9.0 mg/dL (8.3-10.6); Calcium (Corrected) 9.5 mg/dL (8.5-10.1); Carbon Dioxide 20.6 mMol/L (20.0-31.0); Chloride 110 mMol/L (98-107); Creatinine (Component) 0.6 mg/dL (0.6-1.3); Estimated Creatinine Clearance 141.1 mL/min (>60); Globulin 2.0 gm/dL (2.3-3.5); Glucose 81 mg/dL (74-106); LDH (Lactate Dehydrogenase) 178 U/L (120-246); Osmolality,Calculated 280 (275-295); Potassium 3.7 mMol/L (3.4-5.1); Sodium 142 mMol/L (136-145); Total Protein 5.4 gm/dL (5.7-8.2); Uric Acid 5.4 mg/dL (3.1-7.8); eGFR > 60 See Note
[2025-07-07] MEDS: RINGERS LACTATED 1000 ML 1,000 ML 100 ML IV (18:05)
[2025-07-07 20:06] LABS: Syphilis Nonreactive (Nonreactive)
--- NOTE | 2025-07-07 23:04 | ESHP_ITS ---
Documentation for date of: 07/07/25 OB Labor/Induct. HPI History of Present Illness Chief complaint: elevated bp in office : 1 Para: 0 Term pregnancies: 0 pregnancies: 0 Living children: 0 History of Abortions: Spontaneous and Elective: 0 History of Vaginal deliveries: 0 History of sections: No History of : No Date of last menstrual period: 10/13/24 JOSE ALFREDO: 07/20/25 Gestational Age (weeks): 38 Gestational Age (days): 1 Gestational age based on last menstrual period: 38 History of present illness: Patient presents to L&D for elevated bp in office, systolic 150's. She has no WU/vision changes/RUQ pain. No regular/painful ctx. No LOF. No vaginal bleeding. Normal movement. History of Present Dating criteria: LMP confirmed by 1st trimester US Adequate Care: Yes Narrative: Pregancy complicated by: Pre-eclampsia withOUT severe features overlying CHTN Anemia THC use in 1st trimester RNI Current BMI 34.4 (HgbA1c 5.2) Labs Maternal Blood Type: O Pos Labs: Negative: RPR, Hepatitis B, Rubella Titre, HIV, Chlamydia and Gonorrhea and Unknown: Herpes Type 1, Herpes Type 2, Group Beta Strep and Covid- 19 Narrative: OB PANEL: O+,abs-, rpr;;NR, rub NI, HBSAG-,HIV-,HC-, GC/CT-. 1hrgtt: 84, A1c: 5.2, NIPT/AFP/carrier neg Review of Systems Review of Systems Narrative Review of Systems: Review of Systems Systems Reviewed: All systems reviewed, normal except as documented Constitutional Constitutional: Denies body ache(s), Denies chills, Denies fever(s) and Denies headache(s) ENT Ears, Nose, Mouth, and Throat: Denies headache(s) and Denies vertigo Cardiovascular Cardiovascular: Denies chest pain, Denies palpitations, Denies dyspnea and Denies syncope Respiratory Respiratory: Denies cough, Denies dyspnea Gastrointestinal Gastrointestinal: Denies nausea and Denies vomiting Neurologic Neurologic: Denies convulsions, Denies headache(s), Denies other visual disturbances, Denies syncope and Denies vertigo Past Medical History Family History OTHER FAMILY HX: non-contributory Surgical History SURGICAL: Negative Section OTHER SURGICAL HX: none Social History SOCIAL: No tobacco/ETOH/illicit drugs Past Medical History Comments PMH COMMENT: Current BMI 34.4 Meds Home Medications and Allergies Home Medications ?Medication ?Instructions ?Recorded ?Confirmed ?Type NONE ##0 12/04/08 07/07/25 Histor y vits no.130-ferrous fum tab 07/07/25 History 27 mg iron-folic acid 800 mcg tablet ( Vitamin) Allergies Allergy/AdvReac Type Severity Reaction Status Date / Time No Known Allergies Allergy Unknown Uncoded 07/07/25 17:18 OB Exam Physical Exam Vital signs: Temp Pulse Resp BP Pulse Ox 98.1 F 100 16 116/76 100 07/07/25 15:20 07/07/25 22:51 07/07/25 19:15 07/07/25 22:51 07/07/25 16:28 Narrative: Review of Systems Systems Reviewed: All systems reviewed, normal except as documented Constitutional Constitutional: Denies body ache(s), Denies chills, Denies fever(s) and Denies headache(s) ENT Ears, Nose, Mouth, and Throat: Denies headache(s) and Denies vertigo Cardiovascular Cardiovascular: Denies chest pain, Denies palpitations, Denies dyspnea and Denies syncope Respiratory Respiratory: Denies cough, Denies dyspnea Gastrointestinal Gastrointestinal: Denies nausea and Denies vomiting Neurologic Neurologic: Denies convulsions, Denies headache(s), Denies other visual disturbances, Denies syncope and Denies vertigo Detailed Labor and Delivery Exam Dilation (cm): 1 Effacement (%): 0 Cervix position: posterior station: -3 Consistency: medium Presentation: Vertex Membranes: intact monitor accelerations: 15x15 monitor decelerations: None [facility] variability: Moderate (11-25) Contraction frequency (min): no ctx pattern OB Results Labs 07/07/25 15:16 07/07/25 15:16 Labs: Short CBC 07/07/25 Range/Units 15:16 WBC 9.2 (4.5-11.0) Thou/mm3 Hgb 11.8 L (12.0-16.0) g/dL Hct 34.3 L (36.0-46.0) % Plt Count 147 (140-440) Thou/mm3 BMP 07/07/25 15:16 Sodium 142 Potassium 3.7 Chloride 110 H Carbon Dioxide 20.6 BUN 7 L Creatinine 0.6 Glucose 81 Calcium 9.0 Liver Function 07/07/25 Range/Units 15:16 Total Bilirubin 0.3 (0.3-1.2) mg/dL AST 15 (0-34) U/L ALT < 7 L (10-49) U/L Alkaline Phosphatase 161 H (46-116) U/L Albumin 3.4 L (3.5-5.0) gm/dL Urine 07/07/25 Range/Units 15:15 Urine Color Lt-Yellow (Lt Yel-Yel) Urine Clarity Hazy (Clear/Hazy) Urine pH 6.5 (5.0-7.0) Ur Specific [place] 1.011 (1.001-1.035) Urine Protein Trace (Neg - Trace) Urine Glucose (UA) Negative (Negative) OB Assessment & Plan Assessment and Plan (1) Chronic hypertension with exacerbation during in third trimester: Status: Acute Assessment and plan: Izabel is a 19yo with SIUP at 38&1wk with Pre-eclampsia withOUT severe features overlying CHTN. Urine p:c is 0.48 which is an increase from 0.3 on 06/24/25. No sx of pre-E otherwise. SCE: 1/thick/high. Mild range bp's, benign exam. Reassuring assessment. PMhx/ complicated by: Pre-eclampsia withOUT severe features overlying CHTN Anemia THC use in 1st trimester RNI Current BMI 34.4 (HgbA1c 5.2) She has care with TA Duff, transfer from Dr. Ayala Plan: -Admit to L&D -Establish IV, routine labs -CEFM -Clear liquid diet -Plumbing Drafter/consent re: iol and -GBS status: negative -Will initiate IOL with cervidil -Anticipate -Safe to proceed (2) 38 weeks gestation of : Status: Acute (3) Obesity affecting in third trimester: Status: Acute (3) Obesity affecting in third trimester Qualifiers: Obesity type affecting : unspecified obesity Qualified Code(s): O 99.213 - Obesity complicating , third trimester
[2025-07-08] VITALS (29 sets, daily range): BP systolic 92–161; BP diastolic 59–101; PULSE 55–102; RESP 18; TEMP 36.9–37; O2SAT 93
[2025-07-08] MEDS: RINGERS LACTATED 1000 ML 1,000 ML 100 ML IV ×3 (01:48→21:47)
--- NOTE | 2025-07-08 12:42 | PD.LDPN ---
Documentation for date of: 07/08/25 OB Labor Progress Note Pelvic Exam Dilation (cm): 1 Effacement (%): 60 station: -3 Amniotic membrane status: Intact Contractions Monitor mode: External Contraction frequency: occ Contraction intensity: Mild Status status: Category l Assessment and Plan Comments: Intrapartum Note Patient doing well. This morning after cervidil was removed, SCE now 60/-3. I offered cervical iraheta balloon with cytotec but patient wanted to consider. After considering, she declined iraheta balloon and opted for cytotec alone. No WU/vision changes/ RUQ pain. BPs normal to mild range Cat I FHRT Will proceed with cytotec 25mcg PV Q4hr CEFM Continue to closely monitor Safe to proceed Rafaela Castle MD
[2025-07-08 13:28] LABS: Amphetamine/Metham Scrn,Ur OB Negative (Negative); Benzoylecgonine Screen, Ur OB Negative (Negative); Opiate Screen,Urine OB Negative (Negative); THC Screen,Urine OB Negative (Negative)
[2025-07-08] MEDS: fentaNYL CIT INJ 50 mCg/ML AMP 2ML 100 MCG IVP (19:58)
--- NOTE | 2025-07-08 22:42 | PD.LDPN ---
Documentation for date of: 07/08/25 OB Labor Progress Note Pelvic Exam Dilation (cm): 5 Effacement (%): 90 station: -1 Amniotic membrane status: Intact Contractions Monitor mode: External Contraction frequency: 3-4 Contraction intensity: Moderate Status status: Category l Assessment and Plan Comments: Intrapartum Note Patient doing well. Received epidural and now comfortable. Couldn't give next scheduled dose of cytotec at 2030 since ctx too frequent. Normal to mild range bp, afebrile SCE: /-1, AROM performed with clear fluid noted, well tolerated Plan to continue expectant management for now. If progress slows, will initiate IV pitocin and titrate per protocol CEFM Continue to closely monitor Safe to proceed Rafaela Castle MD
[2025-07-09] VITALS (12 sets, daily range): BP systolic 111–134; BP diastolic 79–94; PULSE 71–102; RESP 16–18; TEMP 36.8–37.2; O2SAT 98–100
--- NOTE | 2025-07-09 01:02 | PD.LDDELS ---
Data (Miller) Data Hx Section: No : 1 Term: 0 : 0 Livin Abortions: Spontaneous & Theraputic: 0 Delivery Data (Miller) Labor Data Initiation of labor: Induction Induction/Augmentation Agent: Cytotec-PO ROM date: 07/08/25 ROM time: 22:40 Amniotic membrane rupture type: Artificial Amniotic fluid description: Clear Delivery Data Onset of labor date: 07/08/25 Onset of labor time: 16:30 Complete dilation date: 07/08/25 Complete dilation time: 23:10 [place] delivery date: 07/08/25 delivery time: 23:40 Placenta delivery date: 07/08/25 Placenta delivery time: 23:43 Stage 1 total time: Labor - Stage 1 Duration 6 hours and 40 minutes Delivered by: dr mercado Delivery nurse: marvin Buitrago nurse: kenneth kingstonu nurse rn Marzipan Maker at delivery: No Support person(s) at delivery: jonnie Other staff at delivery: rt at [facility] ,kenneth shift lead, juanita rn,kenneth nicu nurse, Delivery Method Delivery method: Operative Vaginal Delivery Presentation: Vertex Anesthesia Type Anesthesia Type: Epidural Placenta Placenta delivery description: Spontaneous Cord blood sent to lab: Yes cord blood collection: Cord Blood Type EBL Estimated blood loss (ml): 400 Umbilical Cord cord description: 3 Vessels Additional Procedures Izabel is a 19yo [id number] s/p uncomplicated VAVD at 38&2wk after undergoing IOL for pre-eclampsia withOUT severe features, delivering at 2340 on 07/08/2025. On presentation, SCE was 1/thick/high. She progressed with cervidil, cytotec and AROM to C/C/0. She received an epidural and progressed very quickly from 5cm to complete. Once C/C/0, there were deep variable/early FHR decels with contractions. Despite good maternal effort, VAVD was determined necessary to facilitate quicker delivery to ensure well-being. I discussed my recommendation to the patient and she agreed, director audience marketing was called for. She had iraheta removed. The baby's head was confirmed to be in OA presentation at +2 station. The Mityvac was placed and the correct placement in front of the posterior fonanelle was confirmed digitally. With the patient's next contraction, the vacuum was inflated to the green zone for appropriate pressure and a gentle downward pressure was used to assist with delivering the 's head atraumatically with 2 sets of pulls and zero pop-offs. The vacuum was released and removed. There was a tight nuchal cord delivered through. The baby's anterior shoulder delivered immediately and easily, followed by posterior shoulder and corpus. Infant had spontaneous cry and was vigorous, moving all extremities. Apgars 8/9. placed on maternal abdomen where nose/mouth were suctioned and dried/stimulated. After approximately 2 minutes, cord was clamped x2 and cut by FOB. Cord blood collected for typing. With fundal massage and cord traction, placenta delivered spontaneously and intact with 3 vessel centrally inserted cord. Bimanual massage performed and IV pitocin given per protocol with fundus then firm at u-2cm. Inspection of perineum and vagina revealed a starburst laceration with left labial laceration, bilateral sidewall lacerations that led into a 2nd degree midline perineal laceration which was all repaired in routine fashion with 4-0 and 3-0 vicryl. It was a difficult repair given patient's poor tissue quality that would tear when pulling the suture through- ultimately there was continued oozing despite repair, so vaginal packing was placed for pressure and will be removed in 6 hours. Another iraheta catheter was placed in the bladder. Uterus remained firm and hemostatic. All counts correct x2. Mom and were doing well when I left the room. Will give ancef 2g IV x1 given extent of vaginal repair. Rafaela Mercado MD Complications Complications: none Data (Miller) Data 's gender: Male Identification band number: [id number] weight (gms): 2820 g Weight (pounds): 6 lbs and 3.5 ozs length: 46.99 cm 1 minute: 8 5 minutes: 9
[2025-07-09] MEDS: BENZO/LANO/ALOE (Dermoplast) 60 GM CAN 1 SPRAY TOP (01:05)
[2025-07-09] MEDS: TRANEXAMIC ACID 1,000 MG IVPB 1,000 MG/100 ML BAG 200 MG IV (01:31)
[2025-07-09] MEDS: ceFAZolin/D5W 2 GM IV 2 GM/100 ML BAG IV (01:31)
[2025-07-09] MEDS: RINGERS LACTATED 1000 ML 1,000 ML 100 ML IV (02:30)
--- NOTE | 2025-07-09 05:42 | PD.EVENT ---
Documentation for date of: 07/09/25 Event Note Event Note: Vaginal packing removed without issue. Peoples to be removed by RN. Continue routine care. Rafaela Castle MD
[2025-07-09] MEDS: IBUPROFEN TAB 400 MG TABLET 800 MG PO ×2 (06:05→16:37)
[2025-07-09 06:52] LABS: Basophils # (Auto) 0.1 Thou/mm3 (0.0-0.2); Basophils % (Auto) 0 % (0-2.5); Eosinophils # (Auto) 0.0 Thou/mm3 (0.0-0.5); Eosinophils % (Auto) 0 % (0-10); Hematocrit 27.1 % (36.0-46.0); Hemoglobin 9.2 g/dL (12.0-16.0); Immature Granulocytes Auto 0.11 Thou/mm3 (0.00-0.00); Lymphocytes # (Auto) 2.2 Thou/mm3 (1.0-5.0); Lymphocytes % (Auto) 15 % (10-50); Mean Corpuscular HGB Conc 33.9 g/dl (31.0-37.0); Mean Corpuscular Hemoglobin 30.5 pg (25.0-35.0); Mean Corpuscular Volume 90 fL (80-100); Monocytes # (Auto) 1.0 Thou/mm3 (0.0-0.8); Monocytes % (Auto) 7 % (0-12); Neutrophils # (Auto) 12.0 Thou/mm3 (1.8-7.7); Neutrophils % (Auto) 78 % (37-80); Nucleated Red Blood Cell # 0.00 Thou/mm3 (0.00-0.00); Nucleated Red Blood Cell % 0 /100 WBC (0); Platelet Count 127 Thou/mm3 (140-440); RDW Standard Deviation 47.4 fL (36.4-46.3); Red Blood Count 3.02 Miln/mm3 (4.00-5.20); White Blood Count 15.5 Thou/mm3 (4.5-11.0)
[2025-07-09] MEDS: DOCUSATE SOD 100 MG CAPSULE PO ×2 (08:06→21:01)
[2025-07-09] MEDS: PRENATAL VITAMIN/FE FUM/FA TABLET 1 TAB PO (08:06)
[2025-07-09] MEDS: ACETAMINOPHEN 325 MG TABLET 650 MG PO (08:07)
--- NOTE | 2025-07-09 12:19 | PD.LDPPPRG ---
Subjective Subjective Interval history: The patient is a 19-year-old G1 now P1 001 status post vacuum-assisted vaginal delivery with second-degree perineal laceration and some other vaginal lacerations. She delivered 07/08/[address] Castle delivered her. Today she is resting comfortably in bed. She has had her vaginal packing and her Peoples removed. She is going to exclusively bottlefeed. She denies any heavy bleeding and she is up voiding. The plan will be to have her ambulate and see how she is doing as she delivered late she will probably not be discharged until day #2 on 07/10/2025. Exam Vital Signs Temp Pulse Resp BP Pulse Ox O2 Del Method 98.3 F 73 18 134/86 H 99 Room Air 07/09/25 08:00 07/09/25 08:00 07/09/25 08:00 07/09/25 08:00 07/09/25 08:00 07/09/25 08:00 Narrative Exam Fundus firm at umbilicus extremities show no significant edema or erythema Objective Labs 07/09/25 06:40 07/07/25 15:16 Labs: Laboratory Results - last 24 hr 07/08/25 07/09/25 07:15 06:40 WBC 15.5 H D RBC 3.02 L Hgb 9.2 L D Hct 27.1 L MCV 90 MCH 30.5 MCHC 33.9 RDW Std Deviation 47.4 H Plt Count 127 L Neut % (Auto) 78 Lymph % (Auto) 15 [place] % (Auto) 7 Eos % (Auto) 0 Baso % (Auto) 0 Neut # (Auto) 12.0 H Lymph # (Auto) 2.2 [place] # (Auto) 1.0 H Eos # (Auto) 0.0 Baso # (Auto) 0.1 Immature Gran # (Auto) 0.11 H Absolute Nucleated RBC 0.00 Immature Gran % 1 H Nucleated RBC % 0 Urine Opiates Screen Negative U Amphetamin/Meth Scrn Negative U Cocaine Metab Screen Negative U Marijuana (THC) Screen Negative Assessment & Plan Problem List (1) Chronic hypertension with exacerbation during in third trimester: Problem details: Blood pressure stable without medications Status: Acute (2) care following vaginal delivery: Problem details: Ambulate. Monitor for bleeding and pain. Recheck hemoglobin in the morning. Probable discharge tomorrow. Status: Acute Time Spent With Patient Time: Total time spent is greater than 50% in coordination of care (as documented) at patient's floor/unit and/or counseling patient: Time with patient: less than 15 minutes
[2025-07-10 03:20] VITALS: BP 128/87; PULSE 87; RESP 16; TEMP 36.8; O2SAT 99
[2025-07-10 05:27] LABS: Basophils # (Auto) 0.1 Thou/mm3 (0.0-0.2); Basophils % (Auto) 0 % (0-2.5); Eosinophils # (Auto) 0.2 Thou/mm3 (0.0-0.5); Eosinophils % (Auto) 2 % (0-10); Hematocrit 22.8 % (36.0-46.0); Hemoglobin 7.5 g/dL (12.0-16.0); Immature Granulocytes Auto 0.15 Thou/mm3 (0.00-0.00); Lymphocytes # (Auto) 3.8 Thou/mm3 (1.0-5.0); Lymphocytes % (Auto) 27 % (10-50); Mean Corpuscular HGB Conc 32.9 g/dl (31.0-37.0); Mean Corpuscular Hemoglobin 29.6 pg (25.0-35.0); Mean Corpuscular Volume 90 fL (80-100); Monocytes # (Auto) 1.0 Thou/mm3 (0.0-0.8); Monocytes % (Auto) 7 % (0-12); Neutrophils # (Auto) 9.3 Thou/mm3 (1.8-7.7); Neutrophils % (Auto) 64 % (37-80); Nucleated Red Blood Cell # 0.00 Thou/mm3 (0.00-0.00); Nucleated Red Blood Cell % 0 /100 WBC (0); Platelet Count 140 Thou/mm3 (140-440); RDW Standard Deviation 48.5 fL (36.4-46.3); Red Blood Count 2.53 Miln/mm3 (4.00-5.20); White Blood Count 14.5 Thou/mm3 (4.5-11.0)
[2025-07-10 08:00] VITALS: BP 125/86; PULSE 97; RESP 16; TEMP 37.1; O2SAT 99
--- NOTE | 2025-07-10 08:33 | ESPR_ITS ---
Subjective Subjective Interval history: The patient is a 19-year-old -0-0-1 who underwent a vacuum-assisted vaginal delivery for decelerations by Dr. Castle 07/08/2025 around 2340. Patient had a few lacerations in her vagina requiring extensive repair by Dr. Castle. She had vaginal packing originally and a Peoples catheter that were both removed on day 1. Patient's predelivery hemoglobin is 11.8 her post day #1 hemoglobin is 9.2 and this morning her hemoglobin is down to 7.5. Today, the patient is resting comfortably and in no apparent distress. She denies any significant vaginal bleeding . No fevers or chills ,she is voiding, her pain is controlled with oral pain meds. She denies dizziness or shortness of breath. She denies near syncope. She would like to be discharged home. Her pulse and blood pressure have remained stable. Exam Vital Signs Temp Pulse Resp BP Pulse Ox O2 Del Method 98.2 F 87 16 128/87 H 99 Room Air 07/10/25 03:20 07/10/25 03:20 07/10/25 03:20 07/10/25 03:20 07/10/25 03:20 07/10/25 03:20 Narrative Exam Patient is alert and orient x 3 in no apparent distress. Fundus is firm nontender extremities show no significant edema or erythema. Objective Labs 07/10/25 04:58 07/07/25 15:16 Labs: Laboratory Results - last 24 hr 07/10/25 04:58 WBC 14.5 H RBC 2.53 L Hgb 7.5 L Hct 22.8 L MCV 90 MCH 29.6 MCHC 32.9 RDW Std Deviation 48.5 H Plt Count 140 Neut % (Auto) 64 Lymph % (Auto) 27 [place] % (Auto) 7 Eos % (Auto) 2 Baso % (Auto) 0 Neut # (Auto) 9.3 H Lymph # (Auto) 3.8 [place] # (Auto) 1.0 H Eos # (Auto) 0.2 Baso # (Auto) 0.1 Immature Gran # (Auto) 0.15 H Absolute Nucleated RBC 0.00 Immature Gran % 1 H Nucleated RBC % 0 Assessment & Plan Problem List (1) Chronic hypertension with exacerbation during in third trimester: Problem details: Blood pressure stable without medications Status: Acute (2) care following vaginal delivery: Problem details: Ambulate. Monitor for bleeding and pain. Hemoglobin 7.5 but patient asymptomatic. Encourage oral iron and iron rich foods. Call Dr. Ayala for follow-up appointment in 2 weeks. Status: Acute Time Spent With Patient Time: Total time spent is greater than 50% in coordination of care (as documented) at patient's floor/unit and/or counseling patient: Time with patient: less than 15 minutes
--- NOTE | 2025-07-10 08:44 | PD.LDDS ---
DS: Providers Provider Date of admission: 07/07/25 17:35 Primary care physician: Physician No Primary/Family Admitting Provider: Daniella Duff CNM Attending Provider on Admission: Rafaela Castle MD Consults: 07/09/25 01:00 Referral Routine Comment: Attending Provider on DC: Jaymie Allan MD ([facility]) Discharging Provider: Jaymie Allan MD ([facility]) Anticipated date of discharge: 07/10/25 DS: Diagnosis Discharge Diagnosis (1) care following vaginal delivery: Status: Acute Assessment & Plan: Patient doing well. Discharge home day #2 in stable condition. For her anemia recommended oral iron and iron rich foods. Follow-up with Dr. Ayala in 2 weeks for hemoglobin check. All discharge instructions given. Problem List Completed Was Problem List Reviewed/Reconciled?: Yes Summary/Hosp Course Brief History: Patient presents to L&D for elevated bp in office, systolic 150's. She has no WU/vision changes/RUQ pain. No regular/painful ctx. No LOF. No vaginal bleeding. Normal movement. See history and physical for further details. Hospital Course: Peripartum Data Delivery Method: Operative Vaginal Delivery Episiotomy Description: None Laceration Description: see Delivery Summary complications: none Status at Discharge Cognitive/behavioral status at discharge: Patient is alert and oriented x 3 in no apparent distress Functional status at discharge: independent ambulation Overall status at discharge: patient is progressing back to baseline Time Spent with Patient Time attestation: Total time spent providing and/or coordinating discharge services: Time spent: Less than 30 minutes Specific discharge activities: Pelvic rest x 6 weeks. No intercourse x 6 weeks. Iron rich foods and oral iron. Follow-up with Dr. Ayala in 2 weeks Exam Vital Signs Temp Pulse Resp BP Pulse Ox O2 Del Method 98.2 F 87 16 128/87 H 99 Room Air 07/10/25 03:20 07/10/25 03:20 07/10/25 03:20 07/10/25 03:20 07/10/25 03:20 07/10/25 03:20 Narrative Exam Patient is alert and oriented x 3. Fundus is firm. No edema or erythema Discharge Plan Plan Patient Disposition: HOME (Self Care) Disposition Comment: Stable Patient condition on transfer: Stable Prescriptions/Referrals Prescriptions/Med Rec: New docusate sodium 100 mg Capsule 100 mg PO BID 10 Days Qty: 20 0RF ibuprofen 800 mg tablet 800 mg PO Q8H PRN (Reason: See Comments) 10 Days Qty: 20 0RF Continued Vitamin 27 mg iron- 800 mcg tablet 1 tab PO DAILY Patient Comments: take 1 tablet by mouth once daily Referrals: No Primary/Family,Physician [Primary Care Provider] Patient/Caregiver Discharge Instructions Discharge Activity: activity as tolerated Other Discharge Activity Instructions:: vaginal rest and no heavy lifting more than 10 pounds for 6 weeks Other Discharge Diet Instructions: high iron diet Education Materials: After a Vaginal , Understanding Preeclampsia Print Language: Hungarian Activity Restrictions/Additional Instructions: follow up with TA Duff within 1 week for bp check, call clinic for appointment Stand Alone Forms: Amanda Award Info., Patient Portal Info Letter Discharge Order Discharge Orders: Discharge (Routine); Ordered 07/10/25 Ordered By: Jaymie Allan ([facility]) Planned Discharge Date 07/10/25
[2025-07-10] MEDS: IBUPROFEN TAB 400 MG TABLET 800 MG PO (09:24)
[2025-07-10] MEDS: DOCUSATE SOD 100 MG CAPSULE PO (09:24)
[2025-07-10] MEDS: PRENATAL VITAMIN/FE FUM/FA TABLET 1 TAB PO (09:24)
--- NOTE | 2025-07-10 10:09 | PC.CC ---
Izabel Diaz is a 19-year-old female admitted for labor and delivery care. Collar Fuser made contact with Pt at bedside to complete ob assessment and discuss discharge disposition. Role and reason for the contact was explained to Pt. Demographic information was verified. Pt identified NILA Wong Ivet [phone] as surrogate decision maker. Pt is independent with all ADLs, no source of DME. PCP is VALERIE. At time of discharge patient will return home, family will provide transportation. Mother plans on formula feeing, has car seat, and all supplies for baby. Mother denies any use of substance but has hx of THC use - negative at , no DV, no CPS. Mother reports support system provided by extended family. Discharge Plan: Home Next of Kin: NILA Cooney [phone] PCP: VALERIE
== END 2025-07-10 11:12 | disposition home or self-care (01) | DRG 560 ==
LOC: S4S1 17:35 → S4SX 23:03 → S4NX 07-09 02:19
PROVIDERS: Obstetrics & Gynecology; Admitting Provider Advanced Practice Midwife; Referring Provider Advanced Practice Midwife; Visit Provider Obstetrics & Gynecology
DX: O14.04 Mild to moderate pre-eclampsia, complicating childbirth (principal); O10.92 Unspecified pre-existing hypertension complicating childbirth; Z3A.38 38 weeks gestation of pregnancy; Z37.0 Single live birth; O99.214 Obesity complicating childbirth; O76 Abnormality in fetal heart rate and rhythm complicating labor and delivery; O70.1 Second degree perineal laceration during delivery; O69.1XX0 Labor and delivery complicated by cord around neck, with compression, not applicable or unspecified
CPT/HCPCS: 36415; 59025; 59409; 76805; 80053; 80307; 81001; 82570; 83615; 84156; 84550; 85025; 85384; 85610; 85730; 86780; 86850; 86900; 86901; 94762; J0689; J2795; J3010; J3490; J7120; A9270